=== PATIENT | male | born 1995 | race Two or more races ===

== ENCOUNTER 2017-02-18 22:54 | Emergency (ER) | payer OTHER ==
[2017-02-18 23:02] VITALS: BP 125/62; PULSE 68; TEMP 98.3; BMI 21.5
--- NOTE | 2017-02-18 23:06 | PDOC ---
History of Present Illness - General Stated Complaint: " SHOULDER DISLOCATION" LEFT Time Seen by Provider: 02/18/17 22:58 - History of Present Illness Initial Comments: 02/18/17 23:01 22 M with h/o anemia presents to ER with "bump" on his R shoulder. Pt states that he first noticed it about a week ago. He denies any injury to the area. Denies any pain. He states that he feels a protrusion in his R upper back that he never noticed before. Pt denies any other bony lesions in his body. Denies pain with ROM of his R arm. Denies CP/SOB. Past History - Past Medical History Allergies/Adverse Reactions: Allergies Allergy/AdvReac Type Severity Reaction Status Date / Time No Known Allergies Allergy Verified 02/18/17 22:56 Home Medications: Ambulatory Orders NK [No Known Home Medication] 02/18/17 Review of Systems - Review of Systems Comments:: 02/18/17 23:03 "GENERAL/CONSTITUTIONAL: No fever or chills. No weakness. HEAD, EYES, EARS, NOSE AND THROAT: No change in vision. No ear pain or discharge. No sore throat. CARDIOVASCULAR: No chest pain or shortness of breath. RESPIRATORY: No cough, wheezing, or hemoptysis. GASTROINTESTINAL: No nausea, vomiting, diarrhea or constipation. GENITOURINARY: No dysuria, frequency, or change in urination. MUSCULOSKELETAL: R shoulder "bump" SKIN: No rash NEUROLOGIC: No headache, vertigo, loss of consciousness, or change in strength/ sensation. ENDOCRINE: No increased thirst. No abnormal weight change. HEMATOLOGIC/LYMPHATIC: No anemia, easy bleeding, or history of blood clots. ALLERGIC/IMMUNOLOGIC: No hives or skin allergy. " *Physical Exam - Physical Exam Comments: 02/18/17 23:04 "GENERAL: Awake, alert, and fully oriented, in no acute distress HEAD: No signs of trauma EYES: PERRLA, EOMI, sclera anicteric, conjunctiva clear ENT: Auricles normal inspection, hearing grossly normal, nares patent, oropharynx clear without exudates. Moist mucosa NECK: Nontender, no stepoffs, Normal ROM, supple, no lymphadenopathy, JVD, or masses LUNGS: Breath sounds equal, clear to auscultation bilaterally. No wheezes, and no crackles HEART: Regular rate and rhythm, normal S1 and S2, no murmurs, rubs or gallops ABDOMEN: Soft, nontender, normoactive bowel sounds. No guarding, no rebound. No masses EXTREMITIES: R shoulder with full ROM, no obvious deformity but firm nodule palpable located at distal third of spine of scapula, no tenderness, no other bony protrusions NEUROLOGICAL: Cranial nerves II through XII intact. 5/5 strength and sensation in all extremities, Normal speech, normal gait SKIN: Warm, Dry, normal turgor, no rashes or lesions noted. ED Treatment Course - RADIOLOGY Radiology Studies Ordered: Category Date Time Status SCAPULA [RAD] Stat Radiology 02/18/17 23:01 Ordered Medical Decision Making - Medical Decision Making 02/18/17 23:05 22 M with bump on R scapula. Likely chronic deformity. Pt with no other complaints. NO h/o traumatic injury. Has small nodule on spine of scapula and otherwise normal exam. - XR R scapula 02/18/17 23:57 XR with no fracture. Bony protrusion noted in scapula. Unclear etiology. Possible tumor such as osteochonrdoma. Will DC pt with close ortho f/u for further evaluation. *DC/Admit/Observation/Transfer Diagnosis at time of Disposition: Bone deformity - Discharge Dispostion Disposition: HOME Condition at time of disposition: Good - Referrals Referrals: Sherman Martinez MD [Staff Physician] - - Patient Instructions Printed Discharge Instructions: DI for Bone Biopsy Additional Instructions: You need to see an orthopedic surgeon for further evaluation of your bone abnormality. This is likely harmless, but there is a small chance it may represent a tumor, or cancer. You may need a biopsy to diagnose what it is. Call the number provided to make an appointment with our orthopedic clinic within 1 week or ask your primary doctor for a referral. If you experience pain, difficulty moving your arm, or any other concerning symptoms, return to the ER immediately. - Post Discharge Activity - Attestations Physician Attestion: 02/19/17 00:01 I, Dr. Wellington Valencia MD, attest that this document has been prepared under my direction and personally reviewed by me in its entirety. I further attest, that it accurately reflects all work, treatment, procedures and medical decision -making performed by me.
== END 2017-02-19 00:19 | disposition home or self-care (01) ==
LOC: EDBD → FER 22:54
DX: M95.8 Other specified acquired deformities of musculoskeletal system (principal); D64.9 Anemia, unspecified
CPT/HCPCS: 73010-TC; 99281-25